=== PATIENT | male | born 1980 | race Two or more races ===

== ENCOUNTER 2024-06-01 14:31 | Emergency (ER) | payer SELFPAY ==
[~2024-06-01] VITALS: Ht 177.8 cm; Wt 89.0 kg
[2024-06-01 14:39] VITALS: BP 124/62; PULSE 88; RESP 16; TEMP 98.7; O2SAT 95
== END 2024-06-01 17:18 | disposition left against medical advice (07) ==
LOC: ER 14:31
DX: F10.129 Alcohol abuse with intoxication, unspecified (principal); X58.XXXA Exposure to other specified factors, initial encounter; Y93.61 Activity, american tackle football; Y92.89 Other specified places as the place of occurrence of the external cause; Y99.8 Other external cause status; Y90.9 Presence of alcohol in blood, level not specified
CPT/HCPCS: 99283